=== PATIENT | female | born 1995 ===

== ENCOUNTER 2021-11-20 09:18 | Outpatient (CLI) | payer OTHER | END 2021-11-20 10:45 | disposition home or self-care (01) | LOC: PRENATAL 09:18 | PROVIDERS: ATTEND Obstetrics & Gynecology Maternal & Fetal Medicine | DX: O35.0XX0 Maternal care for (suspected) central nervous system malformation in fetus, not applicable or unspecified (principal); O35.3XX0 Maternal care for (suspected) damage to fetus from viral disease in mother, not applicable or unspecified ==

== ENCOUNTER 2022-04-01 05:57 | Inpatient (IN) | payer OTHER ==
[~2022-04-01] VITALS: Ht 162.6 cm; Wt 80.7 kg
[2022-04-04] MEDS ORDERED: ATABEX OB TABL1 EACH (10:38)
== END 2022-04-04 18:30 | disposition home or self-care (01) | DRG 807 ==
LOC: LDR 05:57 → OB/GYN 04-02 18:25
PROVIDERS: ADMIT Obstetrics & Gynecology; ATTEND Obstetrics & Gynecology
PROC: 4A1HXCZ Monitoring of Products of Conception, Cardiac Rate, External Approach (ICD-10-PCS; 2022-04-01)
PROC: 10E0XZZ Delivery of Products of Conception, External Approach (ICD-10-PCS; principal; 2022-04-02)
PROC: 0KQM0ZZ Repair Perineum Muscle, Open Approach (ICD-10-PCS; 2022-04-02)
PROC: 0UQG7ZZ Repair Vagina, Via Natural or Artificial Opening (ICD-10-PCS; 2022-04-02)
DX: O70.1 Second degree perineal laceration during delivery (principal); Z37.0 Single live birth; Z3A.39 39 weeks gestation of pregnancy; Z20.822 Contact with and (suspected) exposure to COVID-19